=== PATIENT | female | born 1965 | race Caucasian/White ===

== ENCOUNTER 2020-07-18 19:06 | Emergency (ER) | payer OTHER ==
[2020-07-18 19:39] LABS: #Basophils 0.1 thou/uL (0.0-0.2); #Lymphocytes 2.2 thou/uL (1.20-3.40); #Monocytes 0.3 thou/uL (0.11-0.59); #Neutrophils 4.6 thou/uL (1.40-6.50); %Eosinophils 0.6 % (0.0-10.0); %Lymphocytes 30.4 % (21.0-51.0); %Monocytes 4.4 % (0.0-10.0); %Neutrophils 63.6 % (42.0-75.0); Hemoglobin 14.8 g/dL (12.0-16.0); Mean Corpuscular HGB CONC 33.5 g/dL (32.0-36.0); Mean Corpuscular Hemoglobin 30.6 pg (27.0-31.0); Mean Corpuscular Volume 91.3 fL (78.0-98.0); Mean Platelet Volume 6.3 fL (7.4-10.4); Platelet Count 218 thou/uL (130-400); RBC Distribution Width 12.6 % (11.5-14.5); Red Blood Cell (RBC) Count 4.84 mill/uL (4.20-5.40); White Blood Cell (WBC) Count 7.3 thou/uL (4.8-10.8)
[2020-07-18 20:00] LABS: ALT (SGPT) 19 U/L (8-55); AST (SGOT) 21 U/L (5-34); Albumin 4.2 g/dL (3.5-5.0); Alkaline Phosphatase 147 U/L (40-110); Anion Gap 16 mmol/L (10-20); BUN (Urea Nitrogen) 9 mg/dL (9.8-20.1); Bilirubin, Total 0.3 mg/dL (0.2-1.2); CK (CPK) 36 U/L (29-168); Calc. Creatinine Clearance 0 mL/min (70-130); Carbon Dioxide 23 mmol/L (22-29); Chloride 103 mmol/L (98-107); Globulin 3.5 g/dL (2.4-3.5); Glucose 86 mg/dL (70-105); Lipase 21 U/L (8-78); Potassium 3.8 mmol/L (3.5-5.1); Protein, Total 7.7 g/dL (6.0-8.3); Sodium 138 mmol/L (136-145)
--- NOTE | 2020-07-18 21:06 | RAD ---
CHEST ONE VIEW: Indication: Hypertension Comparison: 05-05-16 FINDINGS: Lungs are clear. Heart size is normal. No pleural effusion, pneumothorax evident. No acute osseous ab normality is evident. IMPRESSION: No acute cardiopulmonary abnormality. POS: [facility]
[2020-07-18] MEDS ORDERED: HYDROcodone/Acetaminophen 10/325 mg Tablet ONE (21:32)
[2020-07-18 22:30] LABS: Troponin I Less than 0.010 ng/mL (< 0.028)
== END 2020-07-18 23:27 | disposition home or self-care (01) ==
LOC: ERS 19:06
DX: I10 Essential (primary) hypertension (principal); R07.9 Chest pain, unspecified; M79.7 Fibromyalgia; M19.90 Unspecified osteoarthritis, unspecified site; F17.210 Nicotine dependence, cigarettes, uncomplicated
CPT/HCPCS: 36415; 71045; 80053; 82550; 83690; 84484; 85025; 93005

== ENCOUNTER 2020-07-21 16:04 | Emergency (ER) | payer OTHER ==
[2020-07-21 16:40] LABS: #Basophils 0.1 thou/uL (0.0-0.2); #Eosinphils 0.1 thou/uL (0.0-0.7); #Lymphocytes 2.8 thou/uL (1.20-3.40); #Monocytes 0.4 thou/uL (0.11-0.59); #Neutrophils 3.8 thou/uL (1.40-6.50); %Basophils 1.1 % (0.0-1.0); %Eosinophils 1.3 % (0.0-10.0); %Monocytes 5.4 % (0.0-10.0); %Neutrophils 53.3 % (42.0-75.0); Hemoglobin 14.8 g/dL (12.0-16.0); Mean Corpuscular HGB CONC 33.7 g/dL (32.0-36.0); Mean Corpuscular Hemoglobin 30.9 pg (27.0-31.0); Mean Corpuscular Volume 91.6 fL (78.0-98.0); Mean Platelet Volume 6.7 fL (7.4-10.4); Platelet Count 200 thou/uL (130-400); RBC Distribution Width 12.6 % (11.5-14.5); White Blood Cell (WBC) Count 7.2 thou/uL (4.8-10.8)
--- NOTE | 2020-07-21 16:41 | RAD ---
Chest one view HISTORY: Hypertension. Chest pain. COMPARISON: 07/18/2020. FINDINGS: Cardiac silhouette and pulmonary vasculature are unremarkable. Mediastinum is midline. No lobar consolidation or evidence of pneumothorax. IMPRESSION : No acute abnormalities are demonstrated.
[2020-07-21] MEDS ORDERED: Metoclopramide HCl 10 MG/2 ML VIAL ONE (16:54)
[2020-07-21] MEDS ORDERED: diphenhydrAMINE 50 MG/ML VIAL ONE (16:54)
[2020-07-21] MEDS ORDERED: Lorazepam 2 MG/ML VIAL ONE (16:54)
[2020-07-21 17:03] LABS: ALT (SGPT) 13 U/L (8-55); AST (SGOT) 12 U/L (5-34); Albumin 4.3 g/dL (3.5-5.0); Alkaline Phosphatase 156 U/L (40-110); Anion Gap 16 mmol/L (10-20); BUN (Urea Nitrogen) 13 mg/dL (9.8-20.1); Bilirubin, Total 0.4 mg/dL (0.2-1.2); CK (CPK) 36 U/L (29-168); Calc. Creatinine Clearance 0 mL/min (70-130); Calcium 9.4 mg/dL (7.8-10.44); Carbon Dioxide 25 mmol/L (22-29); Chloride 100 mmol/L (98-107); Globulin 3.4 g/dL (2.4-3.5); Glucose 108 mg/dL (70-105); Lipase 16 U/L (8-78); Potassium 3.6 mmol/L (3.5-5.1); Protein, Total 7.7 g/dL (6.0-8.3); Sodium 137 mmol/L (136-145)
[2020-07-21 18:12] LABS: Bilirubin Negative (Negative); Blood, Urine Negative (Negative); Clarity Clear (Clear); Glucose, Urine (Dipstick) Normal (Negative); Ketone, Urine Negative (Negative); Leukocyte Negative Leu/uL (Negative); Nitrite Negative (Negative); Protein, Urine (Dipstick) Negative (Neg-Trace); Specific Gravity, Urine 1.006 (1.002-1.036); Urobilinogen Normal mg/dL (Less than 2); pH, Urine 6.5 (5.0-9.0)
[2020-07-21] MEDS ORDERED: Fentanyl 100 MCG/2 ML VIAL ONE (18:47)
--- NOTE | 2020-07-21 20:17 | CT ---
CT BRAIN 07/21/20 PROVIDED CLINICAL HISTORY: Headache. COMPARISON: 06/16/14. FINDINGS: The ventricular system is normal in size and morphology. There is a stable dilated perivascular space involving the left lentiform nucleus region. There is no evidence for intracranial hemorrhage or mas s effect. The extracranial soft tissue and osseous structures demonstrate an unremarkable CT appearan ce. IMPRESSION: No evidence for intracranial hemorrhage or mass effect. POS: [facility]
== END 2020-07-21 19:02 | disposition home or self-care (01) ==
LOC: ERS 16:04
DX: R07.89 Other chest pain (principal); R51.9 Headache, unspecified; I10 Essential (primary) hypertension; M79.7 Fibromyalgia; M19.90 Unspecified osteoarthritis, unspecified site; F17.210 Nicotine dependence, cigarettes, uncomplicated; Z79.899 Other long term (current) drug therapy
CPT/HCPCS: 70450; 71045; 80053; 81003; 82550; 83690; 84484; 85025; 85379; 93005; 94760; 96365; 96375; J1200; J2060; J2765; J3010